=== PATIENT | male | born 1990 | race Caucasian/White ===

== ENCOUNTER 2017-11-14 14:48 | Inpatient (IN) | payer MEDICAID ==
--- NOTE | 2017-11-14 15:04 | ED Physician Chart ---
ED Chief Complaint/HPI - Patient Information Date Seen:: 11/14/17 Time Seen:: 14:45 Chief Complaint:: chest pain History of Present Illness:: Patient has had left-sided chest pain when he lays down to sleep at night for the last 1 week. Few minutes prior to admission while sitting he developed the chest pain. Pain is nonpleuritic and pressure-like. At night patient has also been getting a hard pounding heartbeat every 1-2 minutes. Left arm has been getting numb and weak. No recent illicit drug use. Patient smoked one pack of cigarettes a day for 10 years but quit 5 years ago and wears a nicotine patch. Historian:: Patient Review:: Nurse's Note Reviewed ED Review of Systems - Review of Systems General/Constitutional: No fever, No chills, No weight loss, No weakness, No diaphoresis, No edema, No loss of appetite Skin: No skin lesions, No rash, No bruising Head: No headache, No light-headedness Eyes: No loss of vision, No pain, No diplopia ENT: No earache, No nasal drainage, No sore throat, No tinnitus Neck: No neck pain, No swelling, No thyromegaly, No stiffness, No mass noted Cardio Vascular: No palpitations, No PND, No orthopnea, No edema Pulmonary: No SOB, No cough, No sputum, No wheezing GI: No nausea, No vomiting, No diarrhea, No pain, No melena, No hematochezia, No constipation, No hematemesis G/U: No dysuria, No frequency, No hematuria Musculoskeletal: No bone or joint pain, No back pain, No muscle pain Endocrine: No polyuria, No polydipsia Psychiatric: No prior psych history, No depression, No anxiety, No suicidal ideation Hematopoietic: No bruising, No lymphadenopathy Allergic/Immuno: No urticaria, No angioedema Neurological: No syncope, No focal symptoms, No weakness, No paresthesia, No headache, No seizure, No dizziness, No confusion, No vertigo ED Past Medical History - Past Medical History Past Medical History: No significant medical hx Family History: Other (mother at age 30 of a heart problem and is a heavy cigarette smoker) Social History: Non Smoker, No Alcohol, Other (patient use illicit drugs ( cocaine and crystal meth) slightly for a couple months about 10 years ago) Surgical History: None Psychiatricy History: None Medication: None Family Medical History - Family Member Mother Age: 30 Ethnicity: Non- Living Status: Hx Family Coronary Artery Disease: Yes Other Medical History: Cardiac arrest. ED Physical Exam - Physical Examination General/Constitutional: Awake, Well-developed, well-nourished, Alert, No distress, GCS 15, Non-toxic appearing, Ambulatory Head: Atraumatic Eyes: Lids, conjuctiva normal, PERRL, EOMI Skin: Nl inspection, No rash, No skin lesions, No ecchymosis, Well hydrated, No lymphadenopathy ENMT: External ears, nose nl, Nasal exam nl, Lips, teeth, gums nl Neck: Nontender, Full ROM w/o pain, No JVD, No nuchal rigidity, No bruit, No mass, No stridor Respiratory: Nl effort/Exclusion, Clear to Auscultation, No Wheeze/Rhonchi/Rales Cardio Vascular: RRR, No murmur, gallop, rubs, NL S1 S2 GI: No tenderness/rebounding/guarding, No organomegaly, No hernia, Normal BS's, Nondistended, No mass/bruits, No McBurney tenderness : No CVA tenderness Extremities: No tenderness or effusion, Full ROM, normal strength in all extremities, No edema, Normal digits & nails Neuro/Psych: Alert/oriented, DTR's symmetric, Normal sensory exam, Normal motor strength, Judgement/insight normal, Mood normal, Normal gait, No focal deficits Misc: Normal back, No paraspinal tenderness ED Labs/Radiology/EKG Results - Lab Results Results: Laboratory Results - last 24 hr 11/14/17 11/14/17 11/14/17 15:05 15:05 15:05 WBC 8.0 RBC 5.24 Hgb 15.5 Hct 45.7 MCV 87.3 MCH 29.6 MCHC Differential 33.9 RDW 12.4 Plt Count 237 MPV 9.0 Neutrophils % 71.0 Lymphocytes % 21.6 Monocytes % 4.9 Eosinophils % 1.7 Basophils % 0.8 Sodium 133 L Potassium 3.8 Chloride 101 Carbon Dioxide 25.0 Anion Gap 10.8 BUN 13 Creatinine 0.9 Est GFR ( Amer) > 60.0 Est GFR (Non-Af Amer) > 60.0 BUN/Creatinine Ratio 14.4 Glucose 204 H Calcium 9.8 Magnesium 1.9 Troponin I < 0.01 L - Radiology Results Results: Chest x-ray negative - EKG Interpretations Rate & Rhythm: sinus tachycardia; rate 116 [place]: normal Comments:: Q waves in III and aVF and V1 and V2 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 ED Assessment - Assessment General Assessment: Patient's EKG is very concerning for coronary artery disease. 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 I spoke to Dr. Penn and patient to be admitted to telemetry. Patient is unaware having hyperglycemia. ED Septic Shock - . Is Septic Shock (SBP<90, OR Lactate>4 mmol\L) present?: No ED Reassessment (Disposition) - Reassessment Reassessment Condition:: Unchanged - Diagnosis Diagnosis:: Chest pain - Patient Disposition Admitted to:: Telemetry Spoke to:: Mitchell Penn Admitting Medical Physician:: Mitchell Penn Condition at Disposition:: Stable, Unchanged
[2017-11-14 15:21] LABS: % BASOPHILS 0.8 % (0.0-2.0); % EOSINOPHILS 1.7 % (0.0-5.0); % LYMPHOCYTES 21.6 % (20.0-50.0); % MONOCYTES 4.9 % (2.0-10.0); BASOPHILE ABSOLUTE 0.1 Th/cumm (0-0.2); EOSINOPHILE ABSOLUTE 0.1 Th/cmm (0.1-0.4); HEMATOCRIT 45.7 % (41.0-60); HEMOGLOBIN 15.5 gm/dL (12-16); LYMPHOCYTE ABSOLUTE 1.7 Th/cmm (1.5-3.0); MEAN CELL VOLUME 87.3 fl (80-99); MEAN CORPUSCULAR HEMOGLOBIN 29.6 pg (26.0-30.0); MEAN CORPUSCULAR HGB CONC 33.9 pg (28.0-36.0); MONOCYTE ABSOLUTE 0.4 Th/cmm (0.3-1.0); NEUTROPHILE ABSOLUTE 5.7 Th/cmm (1.8-8.0); PLATELET COUNT 237 Th/cmm (150-400); RED BLOOD COUNT 5.24 Mil/cmm (4.30-5.70); RED CELL DISTRIBUTION WIDTH 12.4 % (11.5-20.0)
[2017-11-14 15:32] LABS: ANION GAP 10.8 (7.0-16.0); BUN - UREA NITROGEN 13 mg/dL (7-25); CALCIUM SERUM 9.8 mg/dL (8.6-10.3); CHLORIDE 101 mEq/L (98-107); CREATININE - SERUM 0.9 mg/dL (0.7-1.3); GFR AFRICAN-AMERICAN > 60.0 ml/min (>90); GFR NON AFRICAN-AMERICAN > 60.0 ml/min; GLUCOSE 204 mg/dL (70-105); MAGNESIUM 1.9 mg/dL (1.9-2.7); POTASSIUM SERUM 3.8 mEq/L (3.5-5.1); SODIUM SERUM 133 mEq/L (136-145)
--- NOTE | 2017-11-14 15:37 | Diagnostic Imaging Report ---
Portable chest x-ray History: Pain Allowing for portable technique the heart size is normal. No focal pulmonary parenchymal processes. No hilar or mediastinal abnormalities. Irregularity the noted along the articular surface of the distal right clavicle. Findings appear chronic. Impression: No acute abnormalities.
[2017-11-14] MEDS ORDERED: Sodium Chloride 0.9% 1,000 ML IV ONE (16:15)
[2017-11-14] MEDS: Aspirin 81mg Chewable Tab PO SCH (20:04)
[2017-11-14 21:28] LABS: A1C % 5.8 % (4.0-6.0)
--- NOTE | 2017-11-15 00:29 | History & Physical ---
ADMIT DATE: CHIEF COMPLAINT: Chest pain. HISTORY OF PRESENT ILLNESS: The patient is a 27-year-old male who presented to the Emergency Room complaining of chest pain at the substernal area. No shortness of breath, no cough, no nausea, no vomiting. Evaluated by the ER physician, admitted to the telemetry. Cardiac consultation obtained. PAST MEDICAL HISTORY: Negative. PAST SURGICAL HISTORY: Negative. ALLERGIES: None. MEDICATIONS: None. SOCIAL HISTORY: Ex-smoker, no alcohol or drugs. FAMILY HISTORY: Noncontributory. REVIEW OF SYSTEMS: RENAL SYSTEM: No history of chronic renal disorder. CARDIOVASCULAR SYSTEM: No history of coronary artery disease. ENDOCRINE SYSTEM: No diabetes or thyroid problem. GASTROINTESTINAL SYSTEM: No upper or lower GI bleed. NEUROLOGICAL SYSTEM: No seizure disorder. MUSCULOSKELETAL SYSTEM: No muscular dystrophy. HEMATOLOGICAL SYSTEM: No bleeding tendencies. RESPIRATORY SYSTEM: No asthma. GENITOURINARY: No dysuria or hematuria. PHYSICAL EXAMINATION: GENERAL: He is awake, alert, oriented, not in pain or distress. VITAL SIGNS: Temperature 97.2, heart rate 78, blood pressure 156/85. HEENT: Normocephalic. Pupils are reactive to light and accommodation. Sclerae are clear. NECK: Supple. Negative for lymphadenopathy, JVD, or bruit. CHEST: Entry of air bilaterally normal. No rhonchi or wheezing. HEART: S1, S2 normal. No gallop rhythm. ABDOMEN: Soft. Bowel sounds positive. EXTREMITIES: No edema. NEUROLOGIC: He is awake, alert, oriented. No focal motor or sensory deficits. Cranial nerves 2-12 are intact. LABORATORY DATA: White blood cells 8, hemoglobin 15.5, hematocrit 45.7, platelets 237. Sodium 133, potassium 3.8, BUN 13, creatinine 0.8, glucose 204. Troponin less than 0.01. ASSESSMENT: 1. Chest pain. 2. Hypertension. PLAN: The patient admitted to the hospital under Dr. Penn's service. Start him on a cardiac diet, Lopressor 50 mg twice a day, aspirin 81 mg once a day, nitroglycerin 0.4 mg sublingual p.r.n. for chest pain. CPK, troponin in a.m. Dr. Zaire Malik consulted on the case. The patient is a full code. JOB# [id number]
[2017-11-15] MEDS: Aspirin 81mg Chewable Tab PO SCH (08:33)
[2017-11-15] MEDS ORDERED: Nicotine 21 mg/24 hr Tdm TD SCH (09:00)
[2017-11-15 12:26] LABS: CHOLESTEROL 119 mg/dL (<200); HDL -HIGH DENSITY LIPOPROTEIN 16 mg/dL (23-92); TRIGLYCERIDES 97 mg/dL (<150)
--- NOTE | 2017-11-15 18:24 | Consultation ---
DATE OF CONSULTATION: 11/14/[address] Penn. HISTORY OF PRESENT ILLNESS: This is a 27-year-old male patient presented to the Emergency Room complaining of chest pain. According to the patient, he works in the construction. The patient used to take lot of Red Bull. Recently, he started taking shots of [employer] of several shots a day to keep awake during construction. Following this, the patient has been complaining of heart beats, which he feels off and on, hence the patient came to the Emergency Room. No history of PND, orthopnea. FAMILY HISTORY: Unremarkable. FAMILY HISTORY: Unremarkable. SOCIAL HISTORY: The patient has been taking a lot of shots of caffeine. PHYSICAL EXAMINATION: VITAL SIGNS: Blood pressure 120/80, pulse 70, and respirations 20. HEAD: Normocephalic. No lumps or bumps. EYES: Pupils equal, reactive to light. Fundi show AV nicking, sclerae white, conjunctivae pink. NECK: Carotid 2+. Normal upstroke. JVD flat. Thyroid not palpable. Lymph nodes not palpable. CHEST: Shows increased AP diameter. No kyphosis, scoliosis. LUNGS: Bilateral bronchovesicular breath sounds. HEART: PMI fifth intercostal space with lateral to midclavicular line. S1, S2. No S3, S4, soft systolic murmur. ABDOMEN: Soft. Liver, spleen not palpable. No organomegaly. Bowel sounds active. NEUROLOGIC: Unremarkable. EXTREMITIES: Peripheral pulses 2+. No pedal edema. CLINICAL IMPRESSION: 1. Atypical chest pain. The patient has slightly elevated CPK secondary to construction. 2. The patient has nicotine dependence as well as caffeine dependence. PLAN: The patient's cardiac status unremarkable. JOB# [id number]
== END 2017-11-15 15:05 | disposition home or self-care (01) | DRG 203 ==
LOC: ER 14:48 → TELE 16:32
PROVIDERS: ADMIT Family Medicine; ATTEND Family Medicine
DX: R07.89 Other chest pain (principal); F15.20 Other stimulant dependence, uncomplicated; I10 Essential (primary) hypertension; F17.210 Nicotine dependence, cigarettes, uncomplicated
CPT/HCPCS: 36415-UA; 71045-TC; 80048-TC; 80061-TC; 82550-TC; 82553; 83036-90; 83735-TC; 84484-TC; 85025-TC; 93005; J7030; Z7610